=== PATIENT | male | born 1985 | race Hispanic/Latino ===

== ENCOUNTER 2024-10-01 06:49 | Emergency (ER) | payer OTHER ==
[2024-10-01 07:49] LABS: #Basophils 0.07 10x3/uL (0.0-0.2); #Eosinophils 0.04 10x3/uL (0.0-0.5); #Monocytes 0.40 10x3/uL (0.0-1.1); #Neutrophils 4.80 10x3/uL (1.5-8.4); %Basophils 1.0 % (0.0-2.0); %Eosinophils 0.6 % (0.0-6.0); %Lymphocytes 22.0 % (18.0-47.0); %Monocytes 5.9 % (0.0-10.0); %Neutrophils 70.2 % (40.0-75.0); Hematocrit 39.1 % (38.8-50.0); Hemoglobin 13.6 g/dL (13.5-17.5); Mean Corpuscular Hemoglobin 29.6 pg (27.0-33.0); Mean Corpuscular Volume 85.0 fL (81.2-95.1); Platelet Count 191 10x3/uL (150-450); Red Blood Cell (RBC) Count 4.60 10x6/uL (4.32-5.72); White Blood Cell (WBC) Count 6.83 10x3/uL (3.5-10.5)
[2024-10-01 08:08] LABS: ALT (SGPT) 31 U/L (Less than 45); AST (SGOT) 25 U/L (11-34); Albumin 4.2 g/dL (3.1-4.5); Alkaline Phosphatase 47 U/L (40-110); Anion Gap 14 mmol/L (10-20); BUN (Urea Nitrogen) 17 mg/dL (8.9-20.6); Bilirubin, Total 0.7 mg/dL (0.3-1.2); Calc. Creatinine Clearance 0 mL/min (70-130); Calcium 9.4 mg/dL (7.8-10.44); Carbon Dioxide 20 mmol/L (22-29); Chloride 111 mmol/L (98-107); Globulin 3.0 g/dL (2.4-3.5); Glucose 123 mg/dL (70-105); Lipase 34 U/L (8-78); Magnesium 1.8 mg/dL (1.6-2.6); Potassium 3.9 mmol/L (3.5-5.1); Sodium 141 mmol/L (136-145)
[2024-10-01] MEDS ORDERED: Ondansetron PF 4 MG/2 ML Vial ONE (08:53)
[2024-10-01] MEDS ORDERED: Pantoprazole 40 MG VIAL ONE (08:53)
== END 2024-10-01 10:39 ==
LOC: EEVIPCON 06:49 → CSHERS 06:49
DX: K80.50 Calculus of bile duct without cholangitis or cholecystitis without obstruction (principal)
CPT/HCPCS: 36415; 74177; 76705; 80053; 83605; 83690; 83735; 85025; 86850; 86900; 86901; 96374; 96375; J2405; J2470